=== PATIENT | female | born 1950 | race Caucasian/White ===

== ENCOUNTER 2018-04-16 13:37 | Emergency (ER) | payer OTHER ==
--- NOTE | 2018-04-16 13:49 | EDPHY ---
H & P Time Seen by Provider: 04/16/18 13:44 HPI/ROS: Chief complaint. Fall HPI. Patient is a 67-year-old female who presents after a slip and fall from standing position in icy parking lot. She is not sure if she hit her head. She did not lose consciousness. She thinks she saw stars. She has left-sided neck pain, tailbone pain, right wrist pain. No chest discomfort or shortness of breath. No abdominal pain. She has been ambulatory since the fall. ROS 10 systems were reviewed and negative with the exception of the elements mentioned in the history of present illness Past Medical/Surgical History: Healthy Social History: , nonsmoker, no alcohol Smoking Status: Former smoker Physical Exam: General Appearance: Alert well-developed female mild distress vital signs are stable Eyes: Pupils equal and round no pallor or injection. ENT, no hemotympanum or Murray sign. No oral pharyngeal or dental trauma. No bumps to the head or evidence of trauma to the head Respiratory: There are no retractions, lungs are clear to auscultation. Cardiovascular: Regular rate and rhythm. Gastrointestinal: Abdomen is soft and nontender, no masses, bowel sounds normal. Neurological: Awake and alert, sensory and motor exams grossly normal. Skin: Warm and dry, no rashes. Musculoskeletal: Left-sided neck pain. No tenderness over the cervical spine. No thoracic or lumbar tenderness. Tenderness over the sacrum and coccyx. Extremities right wrist pain without obvious swelling or deformity Psychiatric: Patient is oriented X 3, there is no agitation. Alert, conversational. No evidence of repetitive questioning Constitutional: Initial Vital Signs Temperature (C) 36.7 C 04/16/18 13:40 Heart Rate 71 04/16/18 13:40 Respiratory Rate 16 04/16/18 13:40 Blood Pressure 169/90 H 04/16/18 13:40 O2 Sat (%) 96 04/16/18 13:40 O2 Delivery Mode Room Air Allergies/Adverse Reactions: No Known Allergies Allergy (Unverified 04/16/18 13:39) Home Medications: Medication Instructions Recorded NK [No Known Home Meds] 04/16/18 Medical Decision Making - Diagnostics Imaging Results: X-ray right wrist interpreted by me as normal X-ray coccyx and sacrum interpreted by me is normal ED Course/Re-evaluation: Re-evaluation 2:30 p.m.. I re-examined her wrist. She has no tenderness in the anatomical snuffbox. Patient and discussed imaging study results, treatment plan including criteria for return importance of follow-up and further evaluation. She expresses understanding and agreement. Patient is stable, social and interactive. No evidence for head injury Differential Diagnosis: I considered fracture, dislocation, contusion. I also considered whether the patient had evidence of concussion or closed head injury or intracranial bleeding. Departure - Departure Disposition: Home, Routine, Self-Care Clinical Impression: Multiple contusions Fall Qualifiers: Encounter type: initial encounter Qualified Code(s): W19.XXXA - Unspecified fall, initial encounter Sprain of wrist, right Qualifiers: Encounter type: initial encounter Qualified Code(s): S63.501A - Unspecified sprain of right wrist, initial encounter Condition: Good Instructions: Contusion in Adults (ED) Additional Instructions: Ice to sore areas next 24 hr. Tylenol 1000 mg every 4-6 hours, ibuprofen 600 mg every 6 hr for discomfort Return for worsening headache, confusion, vomiting. Re-evaluation in 2-3 days if not improving Referrals: NONE *PRIMARY CARE P,. [Primary Care Provider] - As per Instructions Jose Stafford MD [Medical Doctor] - 2-3 days, if not improved
[2018-04-16 14:53] VITALS: BP 173/101
== END 2018-04-16 14:53 | disposition home or self-care (01) ==
DX: S63.501A Unspecified sprain of right wrist, initial encounter (principal); W00.0XXA Fall on same level due to ice and snow, initial encounter; Y92.481 Parking lot as the place of occurrence of the external cause